=== PATIENT | male | born 1945 | race Caucasian/White ===

== ENCOUNTER 2018-04-13 03:52 | Emergency (ER) | payer MEDICARE, SELFPAY ==
[2018-04-13 04:00] VITALS: BP 147/91; PULSE 88; RESP 16; TEMP 37.1; O2SAT 96; BMI 29.4
--- NOTE | 2018-04-13 04:04 | ED_ITS ---
HPI - Abdominal Pain General Chief Complaint: Abdominal Pain Stated Complaint: low back pain stomach pain x30 mins Time Seen by Provider: 04/13/18 03:59 Source: patient Mode of arrival: ambulatory Limitations: no limitations History of Present Illness HPI narrative: Patient is a 72-year-old male who came into the emergency department for crampy abdominal pain and also back pain. He states that it woke him from his sleep. No nausea or vomiting. He did urinate which did not seem to change the symptoms at all. He has not had a bowel movement. Has not tried anything for the symptoms prior to arrival. Related Data Home Medications Medication Instructions Recorded Confirmed omega 0-zvt-nfy-fish oil [Fish Oil] 1,000 mg PO #0 12/26/16 10/11/17 antiarthritic combination no.2 900 mg PO tab 10/11/17 10/11/17 mg tablet cholecalciferol (vitamin D3) 2,000 2,000 unit PO DAILY 10/11/17 10/11/17 unit capsule arvpgaeqxlqe-Mn-zzdm-minerals 18 tab PO tab 10/11/17 10/11/17 mg-0.4 mg tablet Previous Rx's Medication Instructions Recorded alprazolam [Xanax] 1 mg PO BIDP PRN #20 tab 01/15/17 lisinopril 20 mg PO QDAY #90 tab 01/15/17 albuterol sulfate [Ventolin HFA] 2 puff INH QID #1 ea 01/24/17 Allergies Allergy/AdvReac Type Severity Reaction Status Date / Time cedarwood [CEDARWOOD] Allergy Intermediate URI sx Verified 04/13/18 04:23 codeine [CODEINE] Allergy Mild PASSING OUT Verified 04/13/18 04:23 lidocaine [LIDOCAINE] Allergy Mild Verified 04/13/18 04:23 Review of Systems Constitutional Denies fever(s) and Denies headache(s) ENT Ears, Nose, Mouth, and Throat: Denies headache(s) Cardiovascular Denies chest pain and Denies dyspnea Respiratory Denies dyspnea Gastrointestinal Gastrointestinal: Reports abdominal pain, Denies change in stool character, Denies constipation, Reports cramping, Denies nausea and Denies vomiting Genitourinary Denies dysuria and Denies flank pain Musculoskeletal Reports back pain, Denies myalgias and Denies arthralgias Integumentary/Breasts Denies rash Neurologic Denies behavioral changes and Denies headache(s) Psychiatric Denies behavioral changes Hematologic/Lymphatic Comments: Not on blood thinners PFSH Medical History Hypertension (Acute) Social History Smoking Status: Former smoker alcohol intake: current Social History Smoking Status: Former smoker alcohol intake: current Exam Initial Vital Signs Initial Vital Signs: Vital Signs Temperature 98.8 F 04/13/18 04:00 Pulse Rate 88 04/13/18 04:00 Respiratory Rate 16 04/13/18 04:00 Blood Pressure 147/91 H 04/13/18 04:00 Pulse Oximetry 96 04/13/18 04:00 Const General: cooperative, healthy appearing, comfortable, well developed, well groomed and No acute distress Orientation: alert, awake and oriented x3 HENMT Head: normal to inspection and normocephalic Resp Effort & Inspection: normal respiratory effort Auscultation: clear to auscultation bilaterally Cardio Rate: regular rate Rhythm: regular rhythm Pulses: radial pulses present GI Inspection: non-distended Palpation: soft, No firm and No tender Back/Spine/Pelvis Back: No CVA tenderness Skin Lesions: no lesions Rashes: no rashes Neuro General: alert, awake and oriented x3 Cognition: normal cognition Speech: speech normal Extrem General: normal to inspection and capillary refill normal Psych Appearance: grossly normal and well kempt Course Orders Ordered: ED Orders 04/13/18 04:09 CT abdomen pelvis w con Stat 04/13/18 04:15 Complete Blood Count AUTO DIFF Stat Comprehensive Metabolic Panel Stat Lipase Stat 04/13/18 04:26 Lactate (Lactic Acid) Stat Discontinued Medications Sodium Chloride (Normal Saline 0.9%) 1,000 mls @ 1,000 mls/hr IV BOLUS ONE Stop: 04/13/18 05:07 Last Infusion: 04/13/18 05:30 Dose: 0 mls/hr Admin: 04/13/18 04:23 Dose: 1,000 mls/hr Morphine Sulfate (Morphine) 2 mg IV NOW ONE Stop: 04/13/18 05:21 Last Admin: 04/13/18 05:25 Dose: 2 mg Vital Signs - 8 hr 04/13/18 04:00 04/13/18 05:04 Temperature 98.8 F Pulse Rate 88 78 Respiratory Rate 16 18 Blood Pressure 147/91 H Blood Pressure [Right Arm] 139/75 Pulse Oximetry 96 98 MDM - Abdominal Pain Lab Data Attestation: I reviewed the patient's lab results. Result diagrams: 04/13/18 04:15 04/13/18 04:15 Lab Results 04/13/18 04/13/18 04/13/18 Range/Units 04:15 04:15 04:26 WBC 8.1 (4.5-11.0) X10^3/uL RBC 4.94 (4.5-5.9) X10^6/uL Hgb 14.9 (13.5-17.5) g/dL Hct 44.0 (41-53) % MCV 89.1 (80-100) fL MCH 30.2 (26-34) PG MCHC 33.9 (30-36) % RDW 13.2 (11.6-14.8) % Plt Count 280 (150-400) X10^3/uL Neut % (Auto) 63.0 (50-75) % Lymph % (Auto) 22.6 L (25-40) % Dundy % (Auto) 10.4 (3-14) % Eos % (Auto) 3.4 (2-4) % Baso % (Auto) 0.6 (0-2) % Neut # (Auto) 5100 (0600-7885) /uL Lymph # (Auto) 1800 (3882-8303) /uL Dundy # (Auto) 800 (0-900) /uL Eos # (Auto) 300 (0-450) /uL Baso # (Auto) 0 (0-100) /uL Sodium 138 (137-145) mmol/L Potassium 4.1 (3.4-5.1) mmol/L Chloride 101 (98-107) mmol/L Carbon Dioxide 28 (22-32) mmol/L BUN 15 (9-20) mg/dL Creatinine 0.90 (0.66-1.25) mg/dL Estimated GFR > 60.0 (>60) mL/min BUN/Creatinine Ratio 16.7 (6-22) Glucose 99 (80-110) mg/dL Lactate 1.4 (0.7-2.1) mmol/L Calcium 9.6 (8.4-10.2) mg/dL Total Bilirubin 0.3 (0.2-1.3) mg/dL AST 23 (17-59) IU/L ALT 29 (21-72) IU/L Alkaline Phosphatase 47 (38-126) U/L Total Protein 7.6 (6.3-8.2) g/dL Albumin 4.4 (3.5-5.0) g/dL Globulin 3.2 (1.7-4.1) g/dL Albumin/Globulin Ratio 1.4 (1.0-2.8) Lipase 77 (23-300) U/L Imaging Data CT scan - abdomen: Radiologist's impression: Moderate stool in the colon with sigmoid diverticulosis. No acute abnormality. [facility] Narrative Medical decision making narrative: Patient urinated before he came in and had no dysuria. CT scan shows no signs of acute pathology. No aortic issues. Labs are unremarkable. I do suspect that this is GI in nature. We did discuss he could potentially have diarrhea over the next couple hours. We did discuss return precautions. No indication for emergent surgical consultation. Patient was given return precautions. He expressed understanding and agreement with plan. Discharge Plan Departure Patient Disposition: Home Clinical Impression: Abdominal cramping Instructions: Acute Abdominal Pain Activity Restrictions/Additional Instructions: Your CT scan and labs today were unremarkable. Do not be surprised if you developed some diarrhea over the next couple hours. Contact your primary care doctor for follow-up. Return to the emergency department for any new or worsening symptoms. Continue all your medications as directed. Prescriptions: No Action onppctbduebe-Ak-oisi-minerals [Maximum Daily Multivitamin] 18-0.4 mg tablet PO RF: 0 cholecalciferol (vitamin D3) 2,000 unit capsule 2,000 unit PO DAILY RF: 0 antiarthritic combination no.2 [glucosamine-chondroitin] 900 mg tablet PO RF: 0 omega 9-cqg-zjc-fish oil [Fish Oil] 1,000 MG capsule 1,000 mg PO Qty: 0 RF: 0 alprazolam [Xanax] 1 MG tablet 1 mg PO BIDP PRNQty: 20 RF: 0 lisinopril 20 MG tablet 20 mg PO QDAY Qty: 90 RF: 3 albuterol sulfate [Ventolin HFA] 90 MCG/PUFF HFA aerosol inhaler 2 puff INH QID Qty: 1 RF: 1
--- NOTE | 2018-04-13 04:09 | DI.CT.S_ITS ---
PROCEDURE: CT ABDOMEN PELVIS W CON INDICATIONS: Bilateral lower abdominal pain TECHNIQUE: After the administration of intravenous contrast, 5 mm thick sections acquired from the diaphragm to the symphysis. 5 mm coronal and sagittal reformats were acquired. For radiation dose reduction, the following was used: automated exposure control, adjustment of mA and/or kV according to patient size. COMPARISON: None. FINDINGS: Image quality: Excellent. ABDOMEN: Lung bases: Lung bases are clear. Heart size is normal. There is calcification of the mitral annulus. Solid organs: Liver is normal in size and enhancement. Gallbladder is mildly contracted. Biliary system is non dilated. Pancreas enhances normally. Spleen is normal in size and enhancement. No adrenal nodules. Kidneys demonstrate normal size and enhancement, without hydronephrosis. A low-density cystic lesion is present within the lower pole of the left kidney which likely represents a simple renal cyst but is incompletely characterized. Peritoneum and bowel: Bowel loops demonstrate normal wall thickness and caliber. The appendix is thin walled. There are scattered sigmoid diverticula. No evidence for diverticulitis. No free fluid or air. Nodes and vessels: No retroperitoneal or mesenteric adenopathy by size criteria. Aorta and inferior vena cava are normal in size. There are scattered atheromatous calcifications throughout the aorta and iliac arteries bilaterally. Miscellaneous: No ventral hernias. PELVIS: Genitourinary: Bladder wall thickness is normal. Miscellaneous: No inguinal adenopathy. There is a small fat containing left inguinal hernia. Bones: No suspicious bony lesions. No vertebral body compression fractures. IMPRESSION: 1. No acute intra-abdominal findings. Normal appendix. 2. Diverticulosis. No acute diverticulitis. These findings are concordant with the overnight interpretation. Dictated by: Keisha Pollock M.D. on 04/13/2018 at 8:56 Approved by: Keisha Pollock M.D. on 04/13/2018 at 8:59
[2018-04-13] MEDS: SODIUM CHLORIDE 0.9% 1,000 ML 1000 ML IV (04:23)
[2018-04-13 04:27] LABS: Add Manual Diff / Slide Review NO; Basophils Absolute Auto 0 /uL (0-100); Basophils Percent Auto 0.6 % (0-2); Eosinophils Absolute Auto 300 /uL (0-450); Eosinophils Percent Auto 3.4 % (2-4); Hemoglobin 14.9 g/dL (13.5-17.5); Lymphocytes Absolute Auto 1800 /uL (1100-4500); Lymphocytes Percent Auto 22.6 % (25-40); Mean Corpuscular HGB Conc 33.9 % (30-36); Mean Corpuscular Hemoglobin 30.2 PG (26-34); Mean Corpuscular Volume 89.1 fL (80-100); Monocytes Absolute Auto 800 /uL (0-900); Monocytes Percent Auto 10.4 % (3-14); Neutrophils Absolute Auto 5100 /uL (1500-7000); Platelet Count 280 X10^3/uL (150-400); Red Blood Cell Count 4.94 X10^6/uL (4.5-5.9); Red Cell Distribution Width 13.2 % (11.6-14.8); White Blood Cell Count 8.1 X10^3/uL (4.5-11.0)
[2018-04-13 04:34] LABS: Alanine Aminotransferase 29 IU/L (21-72); Albumin 4.4 g/dL (3.5-5.0); Albumin Globulin Ratio 1.4 (1.0-2.8); Alkaline Phosphatase 47 U/L (38-126); Aspartate Aminotransferase 23 IU/L (17-59); BUN Creatinine Ratio 16.7 (6-22); Bilirubin Total 0.3 mg/dL (0.2-1.3); Blood Urea Nitrogen 15 mg/dL (9-20); Calcium 9.6 mg/dL (8.4-10.2); Carbon Dioxide 28 mmol/L (22-32); Chloride 101 mmol/L (98-107); Estimated Glomerular Filt Rate > 60.0 mL/min (>60); Globulin 3.2 g/dL (1.7-4.1); Glucose 99 mg/dL (80-110); HEMOLYSIS 31 (0-50); Lipase 77 U/L (23-300); Potassium 4.1 mmol/L (3.4-5.1); Sodium 138 mmol/L (137-145); Total Protein 7.6 g/dL (6.3-8.2)
[2018-04-13 04:44] LABS: Lactate (Lactic Acid) 1.4 mmol/L (0.7-2.1)
[2018-04-13 05:04] VITALS: BP 139/75; PULSE 78; RESP 18; O2SAT 98
[2018-04-13] MEDS: MORPHINE 4 MG/ML INJ 2 MG IV (05:25)
[2018-04-13 06:00] VITALS: BP 140/85; PULSE 74; RESP 16; O2SAT 99
[2018-04-13 06:30] VITALS: BP 133/82; PULSE 70; RESP 16; O2SAT 99
[2018-04-13] MEDS: MORPHINE 2 MG/ML INJ IV (06:53)
== END 2018-04-13 07:08 | disposition home or self-care (01) ==
PROVIDERS: Emergency Provider Emergency Medicine; Family Provider Family Medicine
DX: R10.9 Unspecified abdominal pain (principal); M54.5 Low back pain
CPT/HCPCS: 36415; 36591; 74177; 80053; 83605; 83690; 85025; 96361; 96374; 96376; 99283; 99285; J2270; Q9967

== ENCOUNTER → 2018-06-10 07:38 | Outpatient (CLI) | payer MEDICARE, SELFPAY ==
[2018-06-10 08:56] LABS: Cholesterol 170 mg/dL (140-199); HDL Cholesterol 35 mg/dL (40-60); LDL Cholesterol Calculated 110 mg/dL (<100); Triglycerides 126 mg/dL (35-150)
[2018-06-10 09:27] LABS: Prostate Specific Antigen Scrn 0.484 ng/mL (0.1-4.0)
== END ==
PROVIDERS: PCP Internal Medicine; Visit Provider Internal Medicine
DX: I10 Essential (primary) hypertension (principal); Z12.5 Encounter for screening for malignant neoplasm of prostate; Z13.1 Encounter for screening for diabetes mellitus; Z13.6 Encounter for screening for cardiovascular disorders
CPT/HCPCS: 36415; 80061; G0103

== ENCOUNTER → 2018-06-14 10:35 | Outpatient (CLI) | payer MEDICARE, SELFPAY ==
[2018-06-17 21:06] LABS: Fecal Immunochemical Test NOT DETECTED (NOT DETECTED)
== END ==
PROVIDERS: PCP Internal Medicine; Visit Provider Internal Medicine
DX: Z12.11 Encounter for screening for malignant neoplasm of colon (principal)
CPT/HCPCS: 82274

== ENCOUNTER → 2018-07-25 10:41 | Outpatient (CLI) | payer MEDICARE, SELFPAY ==
--- NOTE | 2018-07-25 10:43 | DI.RAD.S_ITS ---
PROCEDURE: XR KNEE LT 3V INDICATIONS: left knee swelling, pain TECHNIQUE: Left views of the knee were acquired. COMPARISON: None. FINDINGS: Bones: No fractures or dislocations. No suspicious bony lesions. Soft tissues: No joint effusion. No suspicious soft tissue calcifications. IMPRESSION: Normal for age, source of current knee pain symptoms is not seen. Dictated by: Travon Cao M.D. on 07/25/2018 at 11:41 Approved by: Travon Cao M.D. on 07/25/2018 at 11:41
== END ==
PROVIDERS: PCP Internal Medicine; Visit Provider Nurse Practitioner Family
DX: M25.562 Pain in left knee (principal)
CPT/HCPCS: 73562

== ENCOUNTER → 2018-08-22 18:26 | Outpatient (CLI) | payer MEDICARE, SELFPAY ==
--- NOTE | 2018-08-22 | DI.MRI.S_ITS ---
PROCEDURE: MR KNEE LT WO CON INDICATIONS: INTERNAL DERANGMENT OF LEFT KNEE TECHNIQUE: Noncontrast sagittal PD fast spin echo and T2 fast spin echo with fat saturation, sagittal 3-D FLASH with fat saturation; coronal T1 spin echo and PD fast spin echo with fat saturation, and axial PD fast spin echo with fat saturation through the knee. COMPARISON: None. FINDINGS: Image quality: Excellent. Menisci: There is peripheral displacement of medial meniscus bowing medial collateral ligament. No definite focal medial meniscal tear. Lateral meniscus is normal in size and signal. The meniscal root ligaments appear intact. Cruciate ligaments: The anterior and posterior cruciate ligaments appear intact. Medial structures: Moderate grade sprain/partial thickness tear involving medial collateral ligament is seen. The posterior oblique ligament, semimembranosus tendon insertions, oblique popliteal ligament, and meniscocapsular junction appear intact. Visualized portions of the pes anserinus tendons appear normal. No abnormal bursal fluid. Lateral structures: The lateral collateral ligament, long and short heads of the biceps femoris tendon appear intact. The popliteus tendon appears normal; the popliteofibular ligament appears intact. The posterosuperior and anteroinferior popliteomeniscal fascicles appear intact. The arcuate and fabellofibular ligaments appear intact, on either side of the lateral inferior geniculate artery. Iliotibial band appears normal. Anterior structures: The quadriceps and patellar tendons appear intact. Patellar alignment is normal. No femoral trochlear dysplasia or ventral trochlear prominence. No edema in the infrapatellar fat pad. 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 Marrow edema involving the adjacent weightbearing portion of medial tibial plateau is seen. No discrete fracture line is noted. 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 Joint space: There is moderate amount of joint fluid, no gross loose body. No Bernal's cyst. Normal appearing synovial plicae are incidentally noted. IMPRESSION: 1. 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 Mild osteoarthritic changes in lateral femoral tibial compartment and patellofemoral compartment is seen. 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 Moderate joint effusion, no gross loose body. 2. Tissu ligaments are intact. No evidence of focal meniscal tear. 3. Moderate grade sprain/partial thickness involving medial collateral ligament. Dictated by: Manuel Mahmood M.D. on 08/23/2018 at 11:18 Approved by: Manuel Mahmood M.D. on 08/23/2018 at 11:25
== END ==
PROVIDERS: PCP Internal Medicine; Visit Provider Orthopaedic Surgery Foot and Ankle Surgery
DX: S83.412A Sprain of medial collateral ligament of left knee, initial encounter (principal); M22.42 Chondromalacia patellae, left knee; M25.462 Effusion, left knee
CPT/HCPCS: 73721

== ENCOUNTER → 2018-09-20 09:05 | Outpatient (CLI) | payer MEDICARE, SELFPAY ==
[2018-09-20 10:39] LABS: Hematocrit 40.9 % (41-53); Hemoglobin 13.9 g/dL (13.5-17.5); Mean Corpuscular Hemoglobin 30.9 PG (26-34); Platelet Count 246 X10^3/uL (150-400); Red Cell Distribution Width 13.2 % (11.6-14.8); White Blood Cell Count 6.2 X10^3/uL (4.5-11.0)
[2018-09-20 10:57] LABS: BUN Creatinine Ratio 18.6 (6-22); Blood Urea Nitrogen 13 mg/dL (9-20); Calcium 9.6 mg/dL (8.4-10.2); Carbon Dioxide 26 mmol/L (22-32); Chloride 104 mmol/L (98-107); Estimated Glomerular Filt Rate > 60.0 mL/min (>60); Glucose 91 mg/dL (80-110); HEMOLYSIS < 15 (0-50); Potassium 4.4 mmol/L (3.4-5.1); Sodium 139 mmol/L (137-145)
== END ==
PROVIDERS: PCP Internal Medicine; Visit Provider Internal Medicine
DX: M17.12 Unilateral primary osteoarthritis, left knee (principal); Z01.812 Encounter for preprocedural laboratory examination
CPT/HCPCS: 36415; 80048; 85027; 87797

== ENCOUNTER 2018-10-18 16:06 | Emergency (ER) | payer MEDICARE, SELFPAY ==
[2018-10-18 16:15] VITALS: BP 111/68; PULSE 88; RESP 20; TEMP 37.9; O2SAT 97; BMI 28.3
--- NOTE | 2018-10-18 16:43 | DI.RAD.S_ITS ---
PROCEDURE: XR KNEE LT 3V INDICATIONS: post op day 1. pt fell onto his left knee , pain and bleeding TECHNIQUE: 3 views of the knee were acquired. COMPARISON: [facility], [facility], XR KNEE LT 3V, 07/25/2018, 10:43. FINDINGS: Bones: There are postoperative changes from left knee hemiarthroplasty involving the medial femorotibial compartment. Surgical hardware appears intact and normally aligned. No evidence for hardware complication. Multiple skin angelika are noted. No acute fractures or dislocations. No suspicious bony lesions. Soft tissues: Expected postoperative soft tissue changes from recent surgical procedure. IMPRESSION: Status post left knee hemiarthroplasty without evidence for hardware complication or acute fracture. Expected overlying soft tissue changes from recent surgical procedure. Dictated by: Srinivas Matias M.D. on 10/18/2018 at 17:03 Approved by: Srinivas Matias M.D. on 10/18/2018 at 17:05
[2018-10-18] MEDS: ONDANSETRON 4 MG ODT SL (19:51)
--- NOTE | 2018-10-18 20:07 | ED_ITS ---
HPI - Extremity Injury (Lower) <Chantel WilkinsDEB - Last Filed: 10/18/18 21:49> General Chief Complaint: Extremity Injury, Lower Stated Complaint: knee replacement surgery, GLF, wound bleeding Time Seen by Provider: 10/18/18 19:03 Source: patient Mode of arrival: ambulatory Limitations: no limitations History of Present Illness HPI Narrative: 72-year-old male who is status post 1 day left partial knee replacement by Dr. Le at [facility] in [place], states that he was getting home today around 3:00 p.m. when he tripped on the last step at his house and fell on to his buttocks and his left knee. He states that he noticed more bleeding and that it was coming through the bandage. He denies deformity, denies increased pain, denies syncope, and denies hitting his head. He is able to move his extremity, limited flexion and extension as expected after surgery. Patient denies any fevers, chills, vomiting, nausea, dizziness, change in bowel or bladder problems, numbness, tingling, or other injuries. Related Data Home Medications Medication Instructions Recorded Confirmed cholecalciferol (vitamin D3) 2,000 2,000 unit PO DAILY 10/11/17 09/20/18 unit capsule yoptcjkdxpjj-Cf-ouez-minerals 18 tab PO tab 10/11/17 09/20/18 mg-0.4 mg tablet antiarthritic combination no.2 900 mg PO tab 05/30/18 09/20/18 mg tablet aspirin 81 mg tablet,delayed 81 mg PO DAILY 05/30/18 09/20/18 release omega 2-ubx-ybs-fish oil 1,000 mg See Rx Instructions PO DAILY #0 cap 05/30/18 09/20/18 (120 mg-180 mg) capsule acetaminophen 500 mg tablet 500 mg PO QID PRN 07/25/18 09/20/18 lisinopril 20 mg PO DAILY 10/18/18 10/18/18 meloxicam 7.5 mg PO DAILY 10/18/18 10/18/18 meloxicam 15 mg PO DAILY 10/18/18 10/18/18 Previous Rx's Medication Instructions Recorded alprazolam 1 mg tablet 1 mg PO BID PRN #5 tab 05/30/18 simvastatin 20 mg tablet 20 mg PO QPM #90 tab 07/12/18 Allergies Allergy/AdvReac Type Severity Reaction Status Date / Time cedarwood [CEDARWOOD] Allergy Intermediate URI sx Verified 10/18/18 16:36 codeine [CODEINE] Allergy Mild PASSING OUT Verified 10/18/18 16:36 lidocaine [LIDOCAINE] Allergy Mild Verified 10/18/18 16:36 Review of Systems <DEB Reyna - Last Filed: 10/18/18 21:49> Review of Systems Narrative: REVIEW OF SYSTEMS: GENERAL: Denies fever or chills. HENT: No head trauma. EYES: No double vision or vision loss. CARDIOVASCULAR: No chest pain or syncope. RESPIRATORY: No shortness of breath or cough. GASTROINTESTINAL: No nausea, vomiting, diarrhea, or constipation. GENITOURINARY: No flank pain or dysuria. MUSCULOSKELETAL: Complains of left knee pain, see HPI. INTEGUMENTARY: No rash, lesions, or pruritus. NEURO: No numbness, tingling. PSYCH: No behavior or mood changes. PFSH <DEB Reyna - Last Filed: 10/18/18 21:49> Medical History Abdominal cramps (Resolved ~04/13/18) Benign essential hypertension (Chronic) Cardiac murmur (Chronic) Hearing loss (Chronic) Hyperlipidemia (Chronic) Hypertension (Chronic) Osteoarthritis of left knee (Chronic) Spinal stenosis (Chronic ~2013) Vision disorder (Chronic) Surgical History Broken wrist (Resolved ~1964) Family History Father Mental health problem Mother Stroke Sister Schizophrenia Grandfather Heart failure Grandmother Heart failure Grandfather Alcoholic Grandmother No problems noted. Social History Smoking Status: Former smoker alcohol intake: current Family History Father Mental health problem Mother Stroke Sister Schizophrenia Grandfather Heart failure Grandmother Heart failure Grandfather Alcoholic Grandmother No problems noted. Social History Smoking Status: Former smoker alcohol intake: current Exam <Chantel CorriganDEB castano - Last Filed: 10/18/18 21:49> Initial Vital Signs Initial Vital Signs: Vital Signs Temperature 100.3 F H 10/18/18 16:15 Pulse Rate 88 10/18/18 16:15 Respiratory Rate 20 10/18/18 16:15 Blood Pressure 111/68 10/18/18 16:15 Pulse Oximetry 97 10/18/18 16:15 PHYSICAL EXAMINATION: GENERAL: Well groomed, alert, and cooperative. Answers questions promptly and appropriately. HENT: Normocephalic, atraumatic. EYES: Symmetrical, sclera white, no periorbital swelling. CARDIOVASCULAR: S1 and S2 sounds normal. Regular rate and rhythm, no murmurs, clicks, or bruits. No pedal edema. RESPIRATORY: Normal respiratory rate, trachea midline, airway patent. No stridor, nasal flaring or accessory muscle use. Lungs are clear in all owens. MUSCULOSKELETAL: Surgical incision site to left knee intact, it appears that possibly 1 staple was dislodged towards the end of the incision, no skin separation, no bleeding, no erythema or exudate surrounding the incision. For patient's dressing was removed, it was saturated with blood. Small 4cmx 6xm hematoma lateral to the knee cap without laceration. Swelling to knee as expected postoperatively. Patient able to extend and bend knee slightly, limited range of motion due to pain and swelling. Equal tone and mass bilaterally. No other injury to legs or buttocks PI EXTREMITIES: CMS intact. SKIN: Warm, dry, soft, appropriate color for ethnicity. No lesions, rashes, or wounds. NEURO: Alert and Oriented X 3. No sensory deficits. PSYCH: Appropriate affect and mood. <Hilda Bender DO - Last Filed: 10/22/18 05:42> Initial Vital Signs Initial Vital Signs: Vital Signs Temperature 100.3 F H 10/18/18 16:15 Pulse Rate 88 10/18/18 16:15 Respiratory Rate 20 10/18/18 16:15 Blood Pressure 111/68 10/18/18 16:15 Pulse Oximetry 97 10/18/18 16:15 Course <Chantel CorriganDEB castano - Last Filed: 10/18/18 21:49> Course Course Narrative: Patient's wound was redressed. Patient stated he had called his surgeon today and alerted them of the fall, he was instructed to update them in the morning as well. Orders Ordered: Discontinued Medications Ondansetron HCl (Zofran Odt) 4 mg SL NOW ONE Stop: 10/18/18 19:25 Last Admin: 10/18/18 19:51 Dose: 4 mg Documented by: LETTYOTECaleb Vital Signs Vital signs: Vital Signs - 8 hr 10/18/18 16:15 10/18/18 20:09 Temperature 100.3 F H Pulse Rate 88 99 H Respiratory Rate 20 Blood Pressure 111/68 134/66 Pulse Oximetry 97 98 <Hilda Bender DO - Last Filed: 10/22/18 05:42> Orders Ordered: Discontinued Medications Ondansetron HCl (Zofran Odt) 4 mg SL NOW ONE Stop: 10/18/18 19:25 Last Admin: 10/18/18 19:51 Dose: 4 mg Documented by: KBROTEM Vital Signs Vital signs: Vital Signs - 8 hr 10/18/18 16:15 10/18/18 20:09 Temperature 100.3 F H Pulse Rate 88 99 H Respiratory Rate 20 Blood Pressure 111/68 134/66 Pulse Oximetry 97 98 MDM - Extremity Injury (Lower) <DEB Reyna - Last Filed: 10/18/18 21:49> Medical Records Attestation: I reviewed the patient's medical records. Lab Data Attestation: I reviewed the patient's lab results. Imaging Data Knee XR: Radiologist's impression: [address] [address] XRay Report Signed Patient: Blayne Nieves RMR#: [id number] : 6Acct:[id number] Age/Sex: 72 / MDate of Service: 10/18/18 Loc: ED Accession Number: [id number] Procedure: XR knee LT 3V Ordering Provider: Hilda Bender D.O. PROCEDURE: XR KNEE LT 3V INDICATIONS: post op day 1. pt fell onto his left knee , pain and bleeding TECHNIQUE: 3 views of the knee were acquired. COMPARISON: [facility], [place], XR KNEE LT 3V, 07/25/2018, 10:43. FINDINGS: Bones: There are postoperative changes from left knee hemiarthroplasty involving the medial femorotibial compartment. Surgical hardware appears intact and normally aligned. No evidence for hardware complication. Multiple skin angelika are noted. No acute fractures or dislocations. No suspicious bony lesions. Soft tissues: Expected postoperative soft tissue changes from recent surgical procedure. IMPRESSION: Status post left knee hemiarthroplasty without evidence for hardware complication or acute fracture. Expected overlying soft tissue changes from recent surgical procedure. Dictated by: Srinivas Matias M.D. on 10/18/2018 at 17:03 Approved by: Srinivas Matias M.D. on 10/18/2018 at 17:05 [facility] Narrative Medical decision making narrative: Simple trauma to left knee without significant complication as noted on x-ray. I believe 1 of the angelika was dislodged however bleeding is controlled and the hematoma is small. Less suspicion for infection as no erythema to his left leg, no excudate from wound, no malaise, or no other concerning symptoms. It is possible that his temperature is slightly elevated as he is barely 24 hours postop. Patient was instructed to monitor his temperature closely and return if any worsening symptoms. Strict return precautions given and follow-up instructions discussed. Discharge Plan Departure Patient Disposition: Home Clinical Impression: Status post left knee replacement Contusion of knee Qualifiers: Encounter type: initial encounter Laterality: left Qualified Code(s): S80.02XA - Contusion of left knee, initial encounter Discharge Date/Time: 10/18/18 20:09 Activity Restrictions/Additional Instructions: Thank you for entrusting me with your care today. As discussed, your x-rays were negative for any fractures or displacement of the hardware that was placed in your knee. You may experience more bruising over the next few days, please leave the bandage in place until follow-up. Monitor for signs of infection such as pussy discharge, fevers, redness, or malaise, if this occurs please return emergency department immediately. Additionally return emergency department if you developed chest pain, shortness of breath, or other concerning symptoms. Prescriptions: No Action cqdzyreerdry-In-kgnd-minerals [Maximum Daily Multivitamin] 18-0.4 mg tablet PO RF: 0 cholecalciferol (vitamin D3) 2,000 unit capsule 2,000 unit PO DAILY RF: 0 glucosamine-chondroitin 900 mg tablet PO RF: 0 omega 8-ggu-hhc-fish oil [Fish Oil] 1,000 mg (120 mg-180 mg) capsule See Rx Instructions PO DAILY Qty: 0 RF: 0 simvastatin 20 mg tablet 20 mg PO QPM Qty: 90 RF: 3 aspirin 81 mg tablet,delayed release (DR/EC) 81 mg PO DAILY RF: 0 alprazolam 1 mg tablet 1 mg PO BID PRN (Reason: anxiety) Qty: 5 RF: 0 acetaminophen [Tylenol Extra Strength] 500 mg tablet 500 mg PO QID PRNRF: 0 meloxicam 15 mg tablet 15 mg PO DAILY RF: 0 meloxicam 7.5 mg tablet 7.5 mg PO DAILY RF: 0 lisinopril 20 mg tablet 20 mg PO DAILY RF: 0 Referrals: Trell Matos MD [Primary Care Provider] -
[2018-10-18 20:09] VITALS: BP 134/66; PULSE 99; O2SAT 98
== END 2018-10-18 20:09 | disposition home or self-care (01) ==
PROVIDERS: Emergency Provider Nurse Practitioner; PCP Internal Medicine
DX: Z98.890 Other specified postprocedural states (principal); Z96.652 Presence of left artificial knee joint; S80.02XA Contusion of left knee, initial encounter
CPT/HCPCS: 73562; 99282; 99283

== ENCOUNTER → 2020-04-26 14:17 | Outpatient (CLI) | payer MEDICARE, SELFPAY ==
--- NOTE | 2020-04-26 14:19 | DI.RAD.S_ITS ---
PROCEDURE: XR SHOULDER RT MIN 2V INDICATIONS: R shoulder pain, dec rom, r/o bony abnormality TECHNIQUE: 3 views of the shoulder were acquired. COMPARISON: None. FINDINGS: Bones: No fractures or dislocations. Moderate acromioclavicular joint and glenohumeral joint osteoarthritic changes are seen. No suspicious bony lesions. Visualized ribs appear intact. Soft tissues: No suspicious soft tissue calcifications. IMPRESSION: Moderate right shoulder joint osteoarthritis. No shoulder fracture or dislocation. Dictated by: Manuel Mahmood M.D. on 04/26/2020 at 13:54 Approved by: Manuel Mahmood M.D. on 04/26/2020 at 14:06
== END ==
PROVIDERS: PCP Internal Medicine; Referring Provider Physician Assistant; Visit Provider Physician Assistant
DX: M25.511 Pain in right shoulder (principal); M19.011 Primary osteoarthritis, right shoulder
CPT/HCPCS: 73030

== ENCOUNTER → 2020-12-15 10:30 | Outpatient (CLI) | payer MEDICARE, SELFPAY ==
[2020-12-15 12:06] LABS: Alanine Aminotransferase 22 IU/L (<50); Albumin 4.3 g/dL (3.5-5.0); Albumin Globulin Ratio 1.5 (1.0-2.8); Alkaline Phosphatase 49 U/L (38-126); Aspartate Aminotransferase 30 IU/L (17-59); BUN Creatinine Ratio 20.5 (6-22); Bilirubin Total 0.7 mg/dL (0.2-1.3); Blood Urea Nitrogen 16 mg/dL (9-20); Calcium 9.7 mg/dL (8.4-10.2); Carbon Dioxide 27 mmol/L (22-32); Chloride 104 mmol/L (98-107); Cholesterol 153 mg/dL (140-199); Estimated Glomerular Filt Rate > 60.0 mL/min (>60); Globulin 2.9 g/dL (1.7-4.1); Glucose 92 mg/dL (80-110); HDL Cholesterol 44 mg/dL (40-60); HEMOLYSIS < 15 (0-50); LDL Cholesterol Calculated 90 mg/dL (<100); Potassium 4.3 mmol/L (3.4-5.1); Sodium 138 mmol/L (137-145); Total Protein 7.2 g/dL (6.3-8.2); Triglycerides 93 mg/dL (35-150)
[2020-12-15 12:37] LABS: Prostate Specific Antigen Scrn 0.604 ng/mL (0.1-4.0)
== END ==
PROVIDERS: PCP Internal Medicine; Referring Provider Internal Medicine; Visit Provider Internal Medicine
DX: E78.5 Hyperlipidemia, unspecified (principal); Z12.5 Encounter for screening for malignant neoplasm of prostate; I10 Essential (primary) hypertension
CPT/HCPCS: 36415; 80053; 80061; G0103

== ENCOUNTER 2021-03-02 15:32 | Emergency (ER) | payer MEDICARE, SELFPAY ==
[2021-03-02 15:39] VITALS: BP 182/102; PULSE 89; RESP 22; TEMP 36.6; O2SAT 100
--- NOTE | 2021-03-02 15:42 | ED.BACK ---
HPI - Back Pain/Injury General Chief Complaint: Back Pain/Injury Stated Complaint: spinal stenosis, pain Time Seen by Provider: 03/02/21 15:38 History of Present Illness HPI Narrative: 75-year-old male former smoker with history of spinal stenosis presents with a chief complaint of gradually worsening right lower back pain with radiation down his right leg since an injury sustained at the end of last week. 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 He denies any numbness, tingling or weakness. He denies any loss of control of bowel or bladder. He has had no fever or chills and does not take blood thinners. His pain is worse when he moves and improves with rest. He is otherwise well and free of complaint. He had been to the walk-in clinic twice over the past few days and has had some Toradol as well as Flexeril with minimal relief. Related Data Home Medications Medication Instructions Recorded Confirmed cholecalciferol (vitamin D3) 50 2,000 unit PO DAILY 10/11/17 03/01/21 mcg (2,000 unit) capsule caxggakkgzco-Ek-svei-minerals 18 tab PO tab 10/11/17 03/01/21 mg-0.4 mg tablet (Maximum Daily Multivitamin) antiarthritic combination no.2 900 mg PO tab 05/30/18 03/01/21 mg tablet (glucosamine-chondroitin) aspirin 81 mg tablet,delayed 81 mg PO DAILY 05/30/18 03/01/21 release omega 4-qdp-pdh-fish oil 1,000 mg See Rx Instructions PO DAILY #0 cap 05/30/18 03/01/21 (120 mg-180 mg) capsule (Fish Oil) acetaminophen 500 mg tablet 500 mg PO QID PRN 07/25/18 03/01/21 (Tylenol Extra Strength) Previous Rx's Medication Instructions Recorded fluticasone propionate 50 See Rx Instructions .ROUTE 08/05/19 mcg/actuation nasal .COMPLEX #16 gram spray,suspension simvastatin 20 mg tablet 20 mg PO QPM #90 tab 10/04/20 lisinopril 20 mg tablet 20 mg PO DAILY #90 tab 12/13/20 meloxicam 15 mg tablet 15 mg PO DAILY #90 tab 01/14/21 cyclobenzaprine 5 mg tablet 5 mg PO TID PRN #20 tab 02/28/21 gabapentin 300 mg capsule 300 mg PO BEDTIME #14 cap 03/02/21 hydrocodone 5 mg-acetaminophen 325 1 tab PO Q4-6H PRN #10 tab 03/02/21 mg tablet ketorolac 10 mg tablet 10 mg PO Q6H PRN #14 tab 03/02/21 prednisone 10 mg tablet See Rx Instructions .ROUTE 03/02/21 .COMPLEX #30 tab Allergies Allergy/AdvReac Type Severity Reaction Status Date / Time cedarwood [CEDARWOOD] Allergy Intermediate URI sx Verified 03/01/21 17:46 codeine [CODEINE] Allergy Mild PASSING OUT Verified 03/01/21 17:46 lidocaine [LIDOCAINE] Allergy Mild Verified 03/01/21 17:46 Review of Systems Review of Systems Narrative: GENERAL: Denies chills, fatigue, malaise, fever, sweats. HEENT: Denies sinus pain, ear pain, sore throat, difficulty swallowing, dizziness. RESPIRATORY: Denies dyspnea, cough, wheezing, hemoptysis, sputum. CARDIOVASCULAR: Denies chest pain, palpitations, orthopnea, edema, GASTROINTESTINAL: Denies nausea, vomiting, abdominal pain, diarrhea, constipation, melena. : Denies dysuria, frequency, incontinence, hematuria, urinary retention. MUSCULOSKELETAL: See HPI SKIN: Denies rash, skin lesions, or other NEUROLOGIC: Denies weakness, headache, numbness, change in speech, confusion, seizures, incoordination. PSYCHIATRIC: No concerning psychosocial issues. 12 point review of systems is negative except for those stated above Patient History Medical History Abdominal cramps (~04/13/18) Benign essential hypertension Cardiac murmur Hearing loss Hyperlipidemia Hypertension Osteoarthritis of left knee Spinal stenosis (~2013) Vision disorder Surgical History Broken wrist (~1965) Family History Father Mental health problem Mother Stroke Sister Schizophrenia Grandfather Heart failure Grandmother Heart failure Grandfather Alcoholic Grandmother No problems noted. Social History Smoking Status: Former smoker alcohol intake: current Smoking Status: Former smoker alcohol intake frequency: 0-2 drinks per day Substance Use Type: does not use Exam Narrative Exam Narrative: GENERAL: [75] year old patient appears stated age. Well-developed patient, in mild distress. Obviously uncomfortable, rubbing his right lower back HEAD: Atraumatic. Normocephalic. EYES: Pupils equal round and reactive. Extraocular motions intact. No scleral icterus. No injection or drainage. ENT: Nose without bleeding, purulent drainage. Throat without erythema, tonsillar hypertrophy or exudate. Airway patent. NECK: Trachea midline. Non tender CARDIOVASCULAR: Regular rate and rhythm without murmurs, gallops, or rubs. RESPIRATORY: Clear to auscultation. Breath sounds equal bilaterally. No wheezes, rales, or rhonchi. GASTROINTESTINAL: Abdomen soft, non-tender, nondistended. EXTREMITIES: No edema or joint tenderness. BACK: warp dyeing vat tender but free of any obvious external abnormalities. Patient exam notes decreased range of motion and muscle spasm, but no CVA tenderness, or vertebral point tenderness. There are no symptoms of cauda equina such as saddle anesthesia, and decreased reflexes, decreased sensation or strength. NEURO: AOx3. SKIN: No rash or erythema of visible areas Initial Vital Signs Initial Vital Signs: Vital Signs Temperature 97.9 F 03/02/21 15:39 Pulse Rate 89 03/02/21 15:39 Respiratory Rate 22 03/02/21 15:39 Blood Pressure 182/102 H 03/02/21 15:39 Pulse Oximetry 100 03/02/21 15:39 Course Orders Ordered: Discontinued Medications Gabapentin (Gabapentin 300 Mg Capsule) 300 mg PO NOW ONE Stop: 03/02/21 15:56 Last Admin: 03/02/21 16:14 Dose: 300 mg Documented by: JENNIFER Ketorolac Tromethamine (Ketorolac 30 Mg/Ml Vial) 30 mg IM NOW ONE Stop: 03/02/21 15:56 Last Admin: 03/02/21 16:13 Dose: 30 mg Documented by: JENNIFER Prednisone (Prednisone 20 Mg Tablet) 40 mg PO NOW ONE Stop: 03/02/21 15:56 Last Admin: 03/02/21 16:14 Dose: 40 mg Documented by: JENNIFER Vital Signs Vital signs: Vital Signs - 8 hr 03/02/21 15:39 Temperature 97.9 F Pulse Rate 89 Respiratory Rate 22 Blood Pressure 182/102 H Pulse Oximetry 100 MDM - Back Pain/Injury MDM Narrative Medical decision making narrative: Multiple etiologies of back pain considered including; Epidural abscess, cauda equina, mass occupying lesion, and other considered, however his history, physical exam and response to therapies are very reassuring and there is no obvious suggestion of an neuro surgical emergency. Patient feels much better after above-stated therapies and walks out feeling much better. He is given return precautions and encouraged to follow closely with his doctor. Discharge Plan Departure Patient Disposition: Home Clinical Impression: Low back pain with sciatica Instructions: DI for Back Pain With Sciatica Activity Restrictions/Additional Instructions: *You have been diagnosed with [lumbar radiculopathy. As we discussed, your history and physical exam are very reassuring and there is no suggestion of a neurosurgical emergency at this time. *What to do: *Please continue to take your regular medications as directed. [x ] New medication prescriptions sent to your pharmacy: [ [facility]] [ ] New medication written as a paper prescription [ ] No new medications given *Please follow up with your primary care provider in 2-3 days, call for an appointment. Let them know you were seen in the Emergency Department and that we ask that you be seen in follow up. We will electronically transmit a record of today's note if your PCP is in our system *If you do not have a primary care provider please contact the [facility] Resource line at [phone]. They will ask some questions about your medical history and help get you set up with a doctor in the community. *Return to Emergency Department if you should have any new, worsening or concerning symptoms, such as [fever greater than 101 F, shaking chills, worsening pain, persistent vomiting or other bothersome symptoms] Prescriptions: New hydrocodone-acetaminophen 5-325 mg tablet 1 tab PO Q4-6H PRN (Reason: pain) Qty: 10 0RF ketorolac 10 mg tablet 10 mg PO Q6H PRN (Reason: pain) Qty: 14 0RF gabapentin 300 mg capsule 300 mg PO BEDTIME Qty: 14 0RF prednisone 10 mg tablet See Rx Instructions .ROUTE .COMPLEX Qty: 30 0RF Rx Instructions: Day 1,2,3: 40mg PO Daily Day 4,5,6: 30mg PO Daily Day 7,8,9: 20mg PO Daily Day 10,11,12: 10mg PO Daily #30 No Action rfohksdmvwpa-Ki-kmsd-minerals [Maximum Daily Multivitamin] 18-0.4 mg tablet PO 0RF cholecalciferol (vitamin D3) 2,000 unit capsule 2,000 unit PO DAILY 0RF glucosamine-chondroitin 900 mg tablet PO 0RF Label Comments: 1500mg Glucosamine/1200mg of Chondroitin. 2 tabs in AM, 1 tab in PM cyclobenzaprine 5 mg tablet 5 mg PO TID PRN (Reason: muscle spasm) Qty: 20 0RF omega 8-ief-ukc-fish oil [Fish Oil] 1,000 mg (120 mg-180 mg) capsule See Rx Instructions PO DAILY Qty: 0 0RF Label Comments: 2 tabs in AM, 1 tab in PM PO DAILY; Rx Instructions: 2 tabs in AM, 1 tab in PM PO DAILY; fluticasone propionate 50 mcg/actuation spray,suspension See Rx Instructions .ROUTE .COMPLEX Qty: 16 5RF Dose Instruction: USE 2 SPRAYS IN EACH NOSTRIL AT BEDTIME Rx Instructions: USE 2 SPRAYS IN EACH NOSTRIL AT BEDTIME simvastatin 20 mg tablet 20 mg PO QPM Qty: 90 0RF Rx Instructions: PT OVERDUE FOR APPT W/PCP. PLEASE CALL TO SCHEDULE APPT. THANKS 10/04/20 lisinopril 20 mg tablet 20 mg PO DAILY Qty: 90 1RF Rx Instructions: KEEP 12/16/20 APPT W/SYLWIA. THANK YOU. 12/13/20 meloxicam 15 mg tablet 15 mg PO DAILY Qty: 90 2RF aspirin 81 mg tablet,delayed release (DR/EC) 81 mg PO DAILY 0RF acetaminophen [Tylenol Extra Strength] 500 mg tablet 500 mg PO QID [id number] Referrals: Trell Matos MD [Primary Care Provider] -
[2021-03-02] MEDS: KETOROLAC 30 MG/ML VIAL IM (16:13)
[2021-03-02] MEDS: GABAPENTIN 300 MG CAPSULE PO (16:14)
[2021-03-02] MEDS: predniSONE 20 MG TABLET 40 MG PO (16:14)
== END 2021-03-02 17:00 | disposition home or self-care (01) ==
PROVIDERS: Emergency Provider Emergency Medicine; PCP Internal Medicine
DX: M54.41 Lumbago with sciatica, right side (principal); Z87.891 Personal history of nicotine dependence
CPT/HCPCS: 96372; 99283; J1885

== ENCOUNTER 2021-03-05 12:27 | Emergency (ER) | payer MEDICARE, SELFPAY ==
[2021-03-05 12:30] VITALS: BP 182/94; PULSE 91; RESP 19; TEMP 36.8; O2SAT 99; BMI 27.6
--- NOTE | 2021-03-05 13:35 | ED.BACK ---
HPI - Back Pain/Injury General Chief Complaint: Back Pain/Injury Stated Complaint: Back Pain Time Seen by Provider: 03/05/21 12:41 Source: patient Mode of arrival: Ambulatory History of Present Illness HPI Narrative: Patient is a 75-year-old male. Has had issues with spinal stenosis in the past. Within the past couple days was working under house and when he got out from another house he twisted wrong and since has had pain in his lower back specifically on the right side. He was seen here in the emergency department a couple days ago. Was sent home with symptom control. Has been taking his medications. Ran out of the hydrocodone today. Has an appointment with his primary doctor already scheduled at the beginning of next week. He has no new symptoms compared earlier this week is shows he has run out of the pain medication and feels like he needs continued symptom control until he can get in disease primary doctor. Patient states the pain is mostly located in his back but occasionally he gets discomfort radiating down to the front of his right leg. Does not currently have any pain in his right leg Related Data Home Medications Medication Instructions Recorded Confirmed cholecalciferol (vitamin D3) 50 2,000 unit PO DAILY 10/11/17 03/01/21 mcg (2,000 unit) capsule josmosdknzep-Ol-etwa-minerals 18 tab PO tab 10/11/17 03/01/21 mg-0.4 mg tablet (Maximum Daily Multivitamin) antiarthritic combination no.2 900 mg PO tab 05/30/18 03/01/21 mg tablet (glucosamine-chondroitin) aspirin 81 mg tablet,delayed 81 mg PO DAILY 05/30/18 03/01/21 release omega 4-ctf-uxs-fish oil 1,000 mg See Rx Instructions PO DAILY #0 cap 05/30/18 03/01/21 (120 mg-180 mg) capsule (Fish Oil) acetaminophen 500 mg tablet 500 mg PO QID PRN 07/25/18 03/01/21 (Tylenol Extra Strength) Previous Rx's Medication Instructions Recorded fluticasone propionate 50 See Rx Instructions .ROUTE 08/05/19 mcg/actuation nasal .COMPLEX #16 gram spray,suspension simvastatin 20 mg tablet 20 mg PO QPM #90 tab 10/04/20 lisinopril 20 mg tablet 20 mg PO DAILY #90 tab 12/13/20 meloxicam 15 mg tablet 15 mg PO DAILY #90 tab 01/14/21 cyclobenzaprine 5 mg tablet 5 mg PO TID PRN #20 tab 02/28/21 gabapentin 300 mg capsule 300 mg PO BEDTIME #14 cap 03/02/21 hydrocodone 5 mg-acetaminophen 325 1 tab PO Q4-6H PRN #10 tab 03/02/21 mg tablet ketorolac 10 mg tablet 10 mg PO Q6H PRN #14 tab 03/02/21 prednisone 10 mg tablet See Rx Instructions .ROUTE 03/02/21 .COMPLEX #30 tab hydrocodone 5 mg-acetaminophen 325 1 tab PO Q6H PRN #20 tab 03/05/21 mg tablet Allergies Allergy/AdvReac Type Severity Reaction Status Date / Time cedarwood [CEDARWOOD] Allergy Intermediate URI sx Verified 03/05/21 12:34 codeine [CODEINE] Allergy Mild PASSING OUT Verified 03/05/21 12:34 lidocaine [LIDOCAINE] Allergy Mild Verified 03/05/21 12:34 Review of Systems Constitutional Constitutional: Denies fever(s) Genitourinary Genitourinary: Reports system reviewed and no additional complaints, except as documented and Reports as per HPI Musculoskeletal Musculoskeletal: Reports system reviewed and no additional complaints, except as documented and Reports as per HPI Integumentary/Breasts Skin/Breast: Reports system reviewed and no additional complaints, except as documented and Reports as per HPI Neurologic Neurologic: Reports system reviewed and no additional complaints, except as documented Hematologic/Lymphatic On Anticoagulants: No Patient History Medical History Abdominal cramps (~04/13/18) Benign essential hypertension Cardiac murmur Hearing loss Hyperlipidemia Hypertension Osteoarthritis of left knee Spinal stenosis (~2013) Vision disorder Surgical History Broken wrist (~1965) Family History Father Mental health problem Mother Stroke Sister Schizophrenia Grandfather Heart failure Grandmother Heart failure Grandfather Alcoholic Grandmother No problems noted. Social History Smoking Status: Former smoker alcohol intake: current Smoking Status: Former smoker alcohol intake frequency: 0-2 drinks per day Substance Use Type: does not use Exam Initial Vital Signs Initial Vital Signs: Vital Signs Temperature 98.2 F 03/05/21 12:30 Pulse Rate 91 H 03/05/21 12:30 Respiratory Rate 19 03/05/21 12:30 Blood Pressure 182/94 H 03/05/21 12:30 Pulse Oximetry 99 03/05/21 12:30 HENMT Head: normal to inspection and normocephalic Resp Effort & Inspection: normal respiratory effort Cardio Rate: regular rate Back/Spine/Pelvis Other: Some tenderness to palpation lower back right paraspinal region Skin General: no rashes or lesions noted Neuro General: patient alert, patient awake and moves all extremities Extrem General: normal to inspection and capillary refill normal Psych Appearance: grossly normal Course Vital Signs Vital signs: Vital Signs - 8 hr 03/05/21 12:30 03/05/21 13:49 Temperature 98.2 F 98.1 F Pulse Rate 91 H 78 Respiratory Rate 19 18 Blood Pressure 182/94 H 182/85 H Pulse Oximetry 99 98 MDM - Back Pain/Injury MDM Narrative Medical decision making narrative: Patient has no new symptoms compared to the last time he was here. I have low suspicion for fracture. Low suspicion for cauda equina. No new trauma. Have him continue taking the prednisone and also the ketorolac. He will start ibuprofen once these have finished. I will refill his hydrocodone for the next couple days. Is important that he follows up with his primary doctor to discuss further evaluation treatment. He was given return precautions. He expressed understanding and agreement. Discharge Plan Departure Patient Disposition: Home Clinical Impression: Back pain Instructions: DI for Low Back Pain Activity Restrictions/Additional Instructions: I do recommend that you continue all of your medications as directed. Keep your appointment that you have already scheduled with her primary doctor next week. Return to the emergency department for any new or worsening symptoms. Prescriptions: New hydrocodone-acetaminophen 5-325 mg tablet 1 tab PO Q6H PRN (Reason: pain) Qty: 20 0RF No Action jjqgvjwejvix-Rr-qmxo-minerals [Maximum Daily Multivitamin] 18-0.4 mg tablet PO 0RF cholecalciferol (vitamin D3) 2,000 unit capsule 2,000 unit PO DAILY 0RF glucosamine-chondroitin 900 mg tablet PO 0RF Label Comments: 1500mg Glucosamine/1200mg of Chondroitin. 2 tabs in AM, 1 tab in PM cyclobenzaprine 5 mg tablet 5 mg PO TID PRN (Reason: muscle spasm) Qty: 20 0RF omega 1-lim-elt-fish oil [Fish Oil] 1,000 mg (120 mg-180 mg) capsule See Rx Instructions PO DAILY Qty: 0 0RF Label Comments: 2 tabs in AM, 1 tab in PM PO DAILY; Rx Instructions: 2 tabs in AM, 1 tab in PM PO DAILY; fluticasone propionate 50 mcg/actuation spray,suspension See Rx Instructions .ROUTE .COMPLEX Qty: 16 5RF Dose Instruction: USE 2 SPRAYS IN EACH NOSTRIL AT BEDTIME Rx Instructions: USE 2 SPRAYS IN EACH NOSTRIL AT BEDTIME simvastatin 20 mg tablet 20 mg PO QPM Qty: 90 0RF Rx Instructions: PT OVERDUE FOR APPT W/PCP. PLEASE CALL TO SCHEDULE APPT. THANKS 10/04/20 lisinopril 20 mg tablet 20 mg PO DAILY Qty: 90 1RF Rx Instructions: KEEP 12/16/20 APPT W/SYLWIA. THANK YOU. 12/13/20 meloxicam 15 mg tablet 15 mg PO DAILY Qty: 90 2RF aspirin 81 mg tablet,delayed release (DR/EC) 81 mg PO DAILY 0RF acetaminophen [Tylenol Extra Strength] 500 mg tablet 500 mg PO QID PRN0RF hydrocodone-acetaminophen 5-325 mg tablet 1 tab PO Q4-6H PRN (Reason: pain) Qty: 10 0RF ketorolac 10 mg tablet 10 mg PO Q6H PRN (Reason: pain) Qty: 14 0RF gabapentin 300 mg capsule 300 mg PO BEDTIME Qty: 14 0RF prednisone 10 mg tablet See Rx Instructions .ROUTE .COMPLEX Qty: 30 0RF Rx Instructions: Day 1,2,3: 40mg PO Daily Day 4,5,6: 30mg PO Daily Day 7,8,9: 20mg PO Daily Day 10,11,12: 10mg PO Daily #30 Referrals: Trell Matos MD [Primary Care Provider] -
[2021-03-05 13:49] VITALS: BP 182/85; PULSE 78; RESP 18; TEMP 36.7; O2SAT 98
== END 2021-03-05 13:50 | disposition home or self-care (01) ==
PROVIDERS: Emergency Provider Emergency Medicine; PCP Internal Medicine
DX: M54.50 Low back pain, unspecified (principal); Z88.5 Allergy status to narcotic agent; Z87.891 Personal history of nicotine dependence
CPT/HCPCS: 99281

== ENCOUNTER 2021-03-12 09:50 | Emergency (ER) | payer MEDICARE, SELFPAY ==
[2021-03-12 10:08] VITALS: BP 161/81; PULSE 73; RESP 18; TEMP 36.6; O2SAT 99; BMI 27.6
--- NOTE | 2021-03-12 13:12 | ED.BACK ---
HPI - Back Pain/Injury General Chief Complaint: Back Pain/Injury Stated Complaint: severe back pain Time Seen by Provider: 03/12/21 13:12 Source: patient History of Present Illness HPI Narrative: 75-year-old gentleman with a history of hypertension, hyperlipidemia arthritis and chronic low back pain with spinal stenosis with acute exacerbation on February 26 after crawling under his house. Did not have any acute injury and woke up the next morning with severe pain. He was seen on the , , , and by his primary care provider on the . He has gone through a number of doses of hydrocodone has been started on a prednisone taper and prescribed gabapentin, he has chronic meloxicam 15 mg daily. Describes the pain as the lower left lumbar area radiating into his buttocks down the lateral aspect of the left leg and sometimes down into the knee. He is not reporting any weakness but has modified his gait somewhat to accommodate and complaining of some left knee pain as well. He describes no bowel or bladder changes and there is no skin involvement or changes. He has not been having any constipation, difficulty with urination, abdominal pain fevers, cough, chest pain or palpitations. Related Data Home Medications Medication Instructions Recorded Confirmed cholecalciferol (vitamin D3) 50 2,000 unit PO DAILY 10/11/17 03/08/21 mcg (2,000 unit) capsule mjdfsxtdqcko-Ox-rhkg-minerals 18 tab PO tab 10/11/17 03/08/21 mg-0.4 mg tablet (Maximum Daily Multivitamin) antiarthritic combination no.2 900 mg PO tab 05/30/18 03/08/21 mg tablet (glucosamine-chondroitin) aspirin 81 mg tablet,delayed 81 mg PO DAILY 05/30/18 03/08/21 release omega 4-dgx-qki-fish oil 1,000 mg See Rx Instructions PO DAILY #0 cap 05/30/18 03/08/21 (120 mg-180 mg) capsule (Fish Oil) acetaminophen 500 mg tablet 500 mg PO QID PRN 07/25/18 03/08/21 (Tylenol Extra Strength) Previous Rx's Medication Instructions Recorded fluticasone propionate 50 See Rx Instructions .ROUTE 08/05/19 mcg/actuation nasal .COMPLEX #16 gram spray,suspension simvastatin 20 mg tablet 20 mg PO QPM #90 tab 10/04/20 lisinopril 20 mg tablet 20 mg PO DAILY #90 tab 12/13/20 meloxicam 15 mg tablet 15 mg PO DAILY #90 tab 01/14/21 gabapentin 300 mg capsule 300 mg PO BEDTIME #14 cap 03/02/21 Allergies Allergy/AdvReac Type Severity Reaction Status Date / Time cedarwood [CEDARWOOD] Allergy Intermediate URI sx Verified 03/12/21 10:13 codeine [CODEINE] Allergy Mild PASSING OUT Verified 03/12/21 10:13 lidocaine [LIDOCAINE] Allergy Mild Verified 03/12/21 10:13 Review of Systems Review of Systems Narrative: Remainder of complete review of systems is otherwise unremarkable except for that included in the HPI. Patient History Medical History Abdominal cramps (~04/13/18) Benign essential hypertension Cardiac murmur Hearing loss Hyperlipidemia Hypertension Osteoarthritis of left knee Spinal stenosis (~2013) Vision disorder Surgical History Broken wrist (~1964) Family History Father Mental health problem Mother Stroke Sister Schizophrenia Grandfather Heart failure Grandmother Heart failure Grandfather Alcoholic Grandmother No problems noted. Social History Smoking Status: Former smoker alcohol intake: current Smoking Status: Former smoker alcohol intake frequency: 0-2 drinks per day Substance Use Type: does not use Exam Initial Vital Signs Initial Vital Signs: Vital Signs Temperature 97.8 F 03/12/21 10:08 Pulse Rate 73 03/12/21 10:08 Respiratory Rate 18 03/12/21 10:08 Blood Pressure 161/81 H 03/12/21 10:08 Pulse Oximetry 99 03/12/21 10:08 General: Alert appropriate in no acute distress Respiratory: Able to speak in full sentences, no obvious respiratory distress Skin: No obvious rashes, warm and dry Neurologic: Grossly intact no obvious asymmetries or abnormalities, intact patellar reflexes Psych: appropriate insight and affect, cooperative Spine: No skin changes. No significant muscle spasm is appreciated the area of concern. Course Orders Ordered: ED Orders 03/12/21 13:23 Urine Microscopic Stat Vital Signs Vital signs: Vital Signs - 8 hr 03/12/21 10:08 Temperature 97.8 F Pulse Rate 73 Respiratory Rate 18 Blood Pressure 161/81 H Pulse Oximetry 99 MDM - Back Pain/Injury Lab Data Labs: Urine Dip Bedside Urine Glucose Negative Bedside Urine Bilirubin - Negative Bedside Urine Ketone - Negative Urine Specific [place] 1.025 Bedside Urine Occult Blood - Negative Bedside Urine pH 6.0 Bedside Urine Protein + 30 Bedside Urine Urobilinogen - Negative Bedside Urine Nitrite - Negative Bedside Urine Leukocytes - Negative Esterase MDM Narrative Medical decision making narrative: 75-year-old gentleman with known low back issues including spinal stenosis and L3-4 areas of concern. Had a minor twisting turning type injury while crawling under house 2 weeks ago and has been having significant back pain since. There is no evidence of trauma, no fevers or risks for epidural abscess or diskitis. No suggestion of zoster, no acute weakness. He has had course of prednisone and a couple of courses of Vicodin and continues on 15 mg of meloxicam daily. He is concerned that he is not improving. We went over the anticipated course of recovery of such injuries. He had a similar episode in 2013 was eventually diagnosed with spinal stenosis with resolution of symptoms within approximately 6 weeks which completely fits into the anticipatory guidance discussed today. Given his chronic issues more than 2 weeks I do not think that additional narcotics are going to be appropriate. He will have him continue his meloxicam as well as the recently started gabapentin. We discussed the use of additional Tylenol through the day. He states he has an appointment with Dr Heredia on Sunday. At this point he can also can continue using heat and ice alternating. Encouraged him to follow-up with his primary care provider and consider physical therapy as well. He is safe for home discharge Discharge Plan Departure Patient Disposition: Home Clinical Impression: Acute exacerbation of chronic low back pain Instructions: DI for Back Pain With Sciatica Activity Restrictions/Additional Instructions: I am so sorry that your hurting as much as you are. You have had all appropriate treatments so far including steroids, muscle relaxers, narcotics. You currently are on the maximum dose of meloxicam as a anti inflammatory and gabapentin to help with the neuropathic pain. Two weeks into this episode means that it is no longer appropriate to use narcotics to help. You can continue to alternate ice and heat using whichever seems to make the most difference. Please continue with your meloxicam and to that you can add Tylenol. I encourage you to keep your appointment with the orthopedic surgeon and would suggest that you also consider physical therapy. I wish you the best Prescriptions: No Action gcavzveualxb-Aq-gort-minerals [Maximum Daily Multivitamin] 18-0.4 mg tablet PO 0RF cholecalciferol (vitamin D3) 2,000 unit capsule 2,000 unit PO DAILY 0RF glucosamine-chondroitin 900 mg tablet PO 0RF Label Comments: 1500mg Glucosamine/1200mg of Chondroitin. 2 tabs in AM, 1 tab in PM omega 2-ert-wvi-fish oil [Fish Oil] 1,000 mg (120 mg-180 mg) capsule See Rx Instructions PO DAILY Qty: 0 0RF Label Comments: 2 tabs in AM, 1 tab in PM PO DAILY; Rx Instructions: 2 tabs in AM, 1 tab in PM PO DAILY; fluticasone propionate 50 mcg/actuation spray,suspension See Rx Instructions .ROUTE .COMPLEX Qty: 16 5RF Dose Instruction: USE 2 SPRAYS IN EACH NOSTRIL AT BEDTIME Rx Instructions: USE 2 SPRAYS IN EACH NOSTRIL AT BEDTIME simvastatin 20 mg tablet 20 mg PO QPM Qty: 90 0RF Rx Instructions: PT OVERDUE FOR APPT W/PCP. PLEASE CALL TO SCHEDULE APPT. THANKS 10/04/20 lisinopril 20 mg tablet 20 mg PO DAILY Qty: 90 1RF Rx Instructions: KEEP 12/16/20 APPT W/SYLWIA. THANK YOU. 12/13/20 meloxicam 15 mg tablet 15 mg PO DAILY Qty: 90 2RF aspirin 81 mg tablet,delayed release (DR/EC) 81 mg PO DAILY 0RF acetaminophen [Tylenol Extra Strength] 500 mg tablet 500 mg PO QID PRN0RF gabapentin 300 mg capsule 300 mg PO BEDTIME Qty: 14 0RF Referrals: Trell Matos MD [Primary Care Provider] -
[2021-03-12 13:48] LABS: Bacteria Urine None Seen; Mucus Urine 1+ (Negative); RBC Urine 0-1/HPF (0-5/HPF); Squamous Epithelial Cell Urine 0-1 /HPF (0-5/HPF); WBC Urine 0-1/HPF (0-5/HPF)
[2021-03-12 13:49] LABS: Sperm Urine FEW
[2021-03-12 14:01] LABS: Culture Indicated Urine Cult Not Indicated
== END 2021-03-12 14:09 | disposition home or self-care (01) ==
PROVIDERS: Emergency Provider Emergency Medicine; PCP Internal Medicine
DX: G89.29 Other chronic pain (principal); M54.50 Low back pain, unspecified
CPT/HCPCS: 81003; 81015; 99281; 99282

== ENCOUNTER → 2021-03-23 09:36 | Outpatient (CLI) | payer MEDICARE, SELFPAY ==
--- NOTE | 2021-03-23 09:37 | DI.MRI.S_ITS ---
PROCEDURE: MR LUMBAR SPINE WO CON INDICATIONS: Low back pain, unspecified TECHNIQUE: Noncontrast sagittal T1 spin echo and T2 fast echo, sagittal STIR, axial T1 and T2 fast spin echo through the lumbar spine. In cases with scoliosis, additional coronal T2 fast spin echo may be performed. COMPARISON: [facility], MR, L-SPINE WITHOUT CONTRAST, 06/08/2014, 18:02. [facility], CR, L-SPINE MINIMUM 4 VIEWS, 06/01/2014, 15:50. [facility] [place], CR, XR LUMBAR SPINE WITH OBLIQUES PLUS FLEXION EXTENSION, 03/15/2021, 9:54. FINDINGS: Image quality: This examination is limited by involuntary motion artifact. Alignment and Curvature: There is minimal retrolisthesis at the L1-L2 level. Minimal anterolisthesis is seen at the L4-L5 level. Bone Marrow: Marrow is of normal overall signal. No acute vertebral body compression fractures. Spinal Cord: Conus medullaris terminates at the L1 level. Visualized cord demonstrates normal signal and size. Paraspinous Soft Tissues: No paravertebral masses. There is a 2.1 cm simple cyst along the posterior aspect the left kidney. T11-T12: Xfem-sz-izapejls loss of disc height is seen. The disc signal is relatively well preserved. Moderate bilateral neural foraminal narrowing is seen. Minimal central canal narrowing is seen. T12-L1: No significant abnormality is seen. L1-L2: Mild loss of disc height is seen. Loss of disc signal is seen. Mild to moderate disc bulge is seen, which is eccentric to the left. Mild to moderate facet hypertrophy is seen. Associated hypertrophy of the ligamentum flavum can be seen. There is moderate right-sided and at least moderate left-sided neural foraminal narrowing. Moderate central canal narrowing is seen. These imaging findings have progressed compared to the prior study. L2-L3: The disc height is well-preserved. Loss of disc signal is seen at this level. At least moderate disc bulge is seen, which is slightly eccentric to the right. There is a superimposed central disc protrusion. There is a focal annular fissure seen posteriorly. At least moderate facet hypertrophy is seen. Associated hypertrophy of the ligamentum flavum can be seen. There is moderate left-sided and moderate to severe right-sided neural foraminal narrowing. There is a degree of compression seen upon the exiting right L2 nerve root. Moderate to severe central canal narrowing is seen at this level. Compared to 2015, these degenerative changes are progressed. L3-L4: The disc height is well-preserved. Loss of disc signal is seen at this level. Moderate generalized disc bulge is seen. At least moderate facet hypertrophy is seen. Associated hypertrophy of the ligamentum flavum can be seen. Moderate bilateral neural foraminal narrowing is seen. Moderate central canal narrowing is seen. These imaging findings have progressed compared to the prior study. L4-L5: The disc height is well-preserved. Loss of disc signal is seen at this level. At least moderate disc bulge is seen, with a relatively prominent central disc protrusion, which is eccentric to the right. Moderate to prominent facet hypertrophy is seen. Associated hypertrophy of the ligamentum flavum can be seen. There is at least moderate bilateral neural foraminal narrowing seen, right worse than left. Severe central canal narrowing is seen at this level, as on series 6, image 5. These degenerative changes are mildly progressed compared to 2015. L5-S1: The disc height and disk signal are well-preserved. Mild generalized disc bulge is seen. Mild facet joint hypertrophy is seen. Minimal bilateral neural foraminal narrowing can be seen. No significant central canal narrowing is seen. When comparison is made with the prior images, these findings are similar. IMPRESSION: Multiple levels of lumbar spine degenerative change are seen, which are worst at the L4-L5 level. The degenerative changes have progressed compared to 2015. Dictated by: Roman Solorio M.D. on 03/23/2021 at 10:21 Approved by: Roman Solorio M.D. on 03/23/2021 at 10:28
== END ==
PROVIDERS: PCP Internal Medicine; Referring Provider Physical Medicine & Rehabilitation Pain Medicine; Visit Provider Physical Medicine & Rehabilitation Pain Medicine
DX: M47.816 Spondylosis without myelopathy or radiculopathy, lumbar region (principal); M54.50 Low back pain, unspecified
CPT/HCPCS: 72148

== ENCOUNTER 2022-08-31 15:23 | Emergency (ER) | payer OTHER, SELFPAY ==
[2022-08-31 15:30] VITALS: BP 143/73; PULSE 89; RESP 14; TEMP 36.4; O2SAT 97; BMI 27.5
--- NOTE | 2022-08-31 16:05 | DI.RAD.S_ITS ---
PROCEDURE: XR HAND LT MIN 3V INDICATIONS: saw Injury to left 2nd and 3rd digits TECHNIQUE: 3 views of the hand(s) acquired. COMPARISON: None. FINDINGS: Bones: No fractures or dislocations. Carpal bones are normally aligned. No suspicious bony lesions. Soft tissues: No suspicious soft tissue calcifications. No radiodense foreign body. IMPRESSION: No fracture. No osseous lesion. If symptoms and/or clinical suspicion for pathology persists, further assessment with repeat radiographs (7-10 days) or advanced imaging (e.g. CT, MRI or bone scan) should be considered. Dictated by: Sadia Orourke MD, PhD on 08/31/2022 at 16:22 Approved by: Sadia Orourke MD, PhD on 08/31/2022 at 16:22
--- NOTE | 2022-08-31 16:32 | ED.WOUNDLAC ---
HPI - Wound/Laceration <Dea Herzog, [facility] - Last Filed: 08/31/22 18:04> General Chief Complaint: Wound/Laceration Stated Complaint: Saw finger inj Time Seen by Provider: 08/31/22 16:03 Source: patient Mode of arrival: Ambulatory History of Present Illness HPI narrative: This is a 76-year-old gentleman who presents to the emergency department with a saw injury to his left 2nd and 3rd digits. He states he was using a table saw and on his last board, something caught and sucked his finger inside, he has a laceration to the finger pad of the left 3rd digit and a small laceration to the finger pad of the left 2nd digit. He does not remember when his tetanus was. States that the bleeding was controlled with a pressure dressing, he cleaned his wound with hydrogen peroxide afterwards. Denies any fingernail injury, complains of some pain. States he took 2 Tylenol to ibuprofen prior to coming in. He is right-hand dominant. Related Data Home Medications Medication Instructions Recorded Confirmed cholecalciferol (vitamin D3) 50 2,000 unit PO DAILY 10/11/17 03/08/21 mcg (2,000 unit) capsule vnqosytbbgjd-Py-rjhr-minerals 18 tab PO 10/11/17 03/08/21 mg-0.4 mg tablet (Maximum Daily Multivitamin) antiarthritic combination no.2 900 mg PO 05/30/18 03/08/21 mg tablet (glucosamine-chondroitin) aspirin 81 mg tablet,delayed 81 mg PO DAILY 05/30/18 03/08/21 release omega 4-gdn-xyw-fish oil 1,000 mg See Rx Instructions PO DAILY #0 05/30/18 03/08/21 (120 mg-180 mg) capsule (Fish Oil) caps acetaminophen 500 mg tablet 500 mg PO QID PRN 07/25/18 03/08/21 (Tylenol Extra Strength) Previous Rx's Medication Instructions Recorded fluticasone propionate 50 See Rx Instructions .Route 08/05/19 mcg/actuation nasal .COMPLEX #16 grams spray,suspension meloxicam 15 mg tablet 15 mg PO DAILY #90 tabs 10/20/21 gabapentin 300 mg capsule 300 mg PO BEDTIME #30 caps 11/28/21 lisinopril 20 mg tablet 20 mg PO DAILY #90 tabs 03/13/22 simvastatin 20 mg tablet 20 mg PO QPM #60 tabs 07/06/22 diazepam 10 mg tablet (Valium) 10 mg PO TID PRN muscle spasm 24 08/31/22 hours #14 tabs hydrocodone 5 mg-acetaminophen 325 1 tab PO Q6H PRN pain #10 tabs 08/31/22 mg tablet hydrocodone 5 mg-acetaminophen 325 1 tab PO Q6H PRN pain #14 tabs 08/31/22 mg tablet Allergies Allergy/AdvReac Type Severity Reaction Status Date / Time cedarwood [CEDARWOOD] Allergy Intermediate URI sx Verified 08/31/22 15:38 codeine [CODEINE] Allergy Mild PASSING OUT Verified 08/31/22 15:38 lidocaine [LIDOCAINE] Allergy Mild Verified 08/31/22 15:38 Review of Systems <DEB Carpio - Last Filed: 08/31/22 18:04> Review of Systems ROS Unobtainable: All systems reviewed & are unremarkable except as noted in HPI and below Patient History <DEB Carpio - Last Filed: 08/31/22 18:04> Medical History Abdominal cramps (~04/13/18) Benign essential hypertension Cardiac murmur Hearing loss Hyperlipidemia Hypertension Osteoarthritis of left knee Spinal stenosis (~2013) Vision disorder Surgical History Broken wrist (~1964) Family History Father Mental health problem Mother Stroke Sister Schizophrenia Grandfather Heart failure Grandmother Heart failure Grandfather Alcoholic Grandmother No problems noted. Social History Smoking Status: Former smoker alcohol intake: current Smoking Status: Former smoker alcohol intake frequency: 0-2 drinks per day Substance Use Type: does not use Exam <DEB Carpio - Last Filed: 08/31/22 18:04> Narrative Exam Narrative: Reviewed vitals signs and nursing notes. General: Pleasant, sitting upright, in no acute distress, well groomed, afebrile HEENT: symmetrical facial expressions, moist mucous membranes, neck is supple MSK: moves all extremities, no weakness, normal tone, ambulatory without deficit Skin: brisk capillary refill, without rash or wound Neuro: clear speech and normal cognition, A&O x3, GCS 15, no focal motor or sensation deficits Initial Vital Signs Initial Vital Signs: Vital Signs Temperature 97.6 F 08/31/22 15:30 Pulse Rate 89 08/31/22 15:30 Respiratory Rate 14 08/31/22 15:30 Blood Pressure 143/73 H 08/31/22 15:30 Pulse Oximetry 97 08/31/22 15:30 Oxygen Delivery Method Room Air 08/31/22 15:30 <Noemy Mackenzie MD - Last Filed: 08/31/22 19:43> Initial Vital Signs Initial Vital Signs: Vital Signs Temperature 97.6 F 08/31/22 15:30 Pulse Rate 89 08/31/22 15:30 Respiratory Rate 14 08/31/22 15:30 Blood Pressure 143/73 H 08/31/22 15:30 Pulse Oximetry 97 08/31/22 15:30 Oxygen Delivery Method Room Air 08/31/22 15:30 Procedures <DEB Carpio - Last Filed: 08/31/22 18:04> Laceration Repair Laceration 1: Site: hand Side (If applicable): left Description: linear and stellate Depth: simple, single layer Local Anesthetic: lidocaine 2% and bupivacaine 0.25% Amount of anesthesia used (mL): 5 Pre-repair: wound explored, irrigated extensively and deep structures intact Skin layer closed with: nylon Skin layer suture size: 5-0 Number of sutures: 9 Technique: simple, interrupted Course <DEB Carpio - Last Filed: 08/31/22 18:04> Orders Ordered: ED Orders 08/31/22 16:05 XR hand LT min 3V Stat Discontinued Medications Hydrocodone Bitart/Acetaminophen (Hydrocodone/Acet 5/325 Tablet) 1 tab PO NOW ONE Stop: 08/31/22 16:40 Last Admin: 08/31/22 16:52 Dose: 1 tab Documented By: NR Bupivacaine HCl (Bupivacaine 0.25% (Pf) Vial) 1 ml INJ INTRA-OP ONE Stop: 08/31/22 16:07 Diphtheria/Tetanus/Acell Pertussis (Tet,Diph,Pertuss(Acell),Vac/Pf 0.5 Ml Syringe) 0.5 ml IM .ONCE ONE Stop: 08/31/22 16:07 Last Admin: 08/31/22 16:51 Dose: 0.5 ml Documented By: NR Lidocaine HCl (Lidocaine 2% Inj Sdv 5ml) 5 ml INJ INTRA-OP ONE Stop: 08/31/22 16:40 Last Admin: 08/31/22 16:55 Dose: 5 ml Documented By: NR Vital Signs Vital signs: Vital Signs - 8 hr 08/31/22 15:30 08/31/22 17:38 Temperature 97.6 F Pulse Rate 89 64 Respiratory Rate 14 Blood Pressure 143/73 H 136/79 Pulse Oximetry 97 99 Oxygen Delivery Method Room Air Room Air <Noemy Mackenzie MD - Last Filed: 08/31/22 19:43> Orders Ordered: ED Orders 08/31/22 16:05 XR hand LT min 3V Stat Discontinued Medications Hydrocodone Bitart/Acetaminophen (Hydrocodone/Acet 5/325 Tablet) 1 tab PO NOW ONE Stop: 08/31/22 16:40 Last Admin: 08/31/22 16:52 Dose: 1 tab Documented By: NR Bupivacaine HCl (Bupivacaine 0.25% (Pf) Vial) 1 ml INJ INTRA-OP ONE Stop: 08/31/22 16:07 Diphtheria/Tetanus/Acell Pertussis (Tet,Diph,Pertuss(Acell),Vac/Pf 0.5 Ml Syringe) 0.5 ml IM .ONCE ONE Stop: 08/31/22 16:07 Last Admin: 08/31/22 16:51 Dose: 0.5 ml Documented By: NR Lidocaine HCl (Lidocaine 2% Inj Sdv 5ml) 5 ml INJ INTRA-OP ONE Stop: 08/31/22 16:40 Last Admin: 08/31/22 16:55 Dose: 5 ml Documented By: NR Vital Signs Vital signs: Vital Signs - 8 hr 08/31/22 15:30 08/31/22 17:38 Temperature 97.6 F Pulse Rate 89 64 Respiratory Rate 14 Blood Pressure 143/73 H 136/79 Pulse Oximetry 97 99 Oxygen Delivery Method Room Air Room Air MDM - Wound/Laceration <DEB Carpio - Last Filed: 08/31/22 18:04> Imaging Data Extremity x-ray #1: Radiologist's Impression: PROCEDURE:? XR HAND LT MIN 3V ? INDICATIONS:? saw Injury to left 2nd and 3rd digits ? TECHNIQUE:? 3 views of the hand(s) acquired.? ? COMPARISON:? None. ? FINDINGS:? ? Bones:? No fractures or dislocations.? Carpal bones are normally aligned.? No suspicious bony lesions.? ? Soft tissues:? No suspicious soft tissue calcifications.? No radiodense foreign body. ? ? IMPRESSION:? No fracture. No osseous lesion. If symptoms and/or clinical suspicion for pathology persists, further assessment with repeat radiographs (7-10 days) or advanced imaging (e.g. CT, MRI or bone scan) should be considered. ? ? Dictated by: Sadia Orourke MD, PhD on 08/31/2022 at 16:22 ? ? Approved by: Sadia Orourke MD, PhD on 08/31/2022 at 16:22 ? MDM Narrative Medical decision making narrative: Chief Complaint: Laceration to left hand digits 2 and 3 Multiple etiologies for patient's complaint considered including, but not limited to: Laceration, tendon, ligament injury, vascular injury allergic reaction to lidocaine I have independently reviewed the patient's vital signs and nursing notes as well as prior records if available. Plan: Discussed patient's lidocaine allergy he does not recall having 1. States that he has had anesthesia of his teeth in the past without complication. He does not remember when his last tetanus was, tetanus given today. He is not anticoagulated, x-rays negative for acute fracture. Patient received 9 sutures in total, his 3rd finger has a stellate laceration requiring 5 sutures, good wound edge approximation, 4th digit has a linear laceration across the finger pad approximately 1.5 cm which received for sutures. Patient's tetanus was updated, finger was irrigated with normal saline prior to suture repair. He tolerated this well, full mobility intact including flexion-extension isolated each joint. I do not suspect a tendon injury. Social considerations that may affect disposition: none Questions are addressed and there is agreement with the plan and for follow-up. I consulted with the ED attending physician Dr. Mackenzie as needed for higher level of care considerations and they were available for discussion and recommendations regarding plan of care and diagnostic testing. Patient is appropriate for outpatient management. Discharge Plan Departure Patient Disposition: Home Clinical Impression: Contact with powered saw as cause of accidental injury Laceration of finger Qualifiers: Encounter type: initial encounter Finger: index finger Damage to nail status: without damage Foreign body presence: without foreign body Laterality: left Qualified Code(s): S61.211A - Laceration without foreign body of left index finger without damage to nail, initial encounter Instructions: How to Care for a Laceration After Repair, DI for Laceration Repair Activity Restrictions/Additional Instructions: *You have been diagnosed with lacerations to your 3rd and 4th digit on your left hand. Your tetanus was updated today, the x-ray does not show any fracture. Please keep your sutures in for 10 days and you can remove them at that point. Please use topical antibiotic ointment to prevent this getting infected, if you notice redness or streaking up your fingers, into her hand, pain out of proportion, increased bleeding or other signs of infection please come back to the emergency department for antibiotics. I hope you stay out of trouble, it was nice to meet you, thank you for not cutting your fingers off. You have [address] *What to do: *Please continue to take your regular medications as directed. [ x] New medication prescriptions sent to your pharmacy: [ [facility]] [ ] New medication written as a paper prescription [ ] No new medications given *Please call and schedule follow up with your primary care provider in 2-3 days, at least for an update. Let them know you were seen in the Emergency Department for the above problem. We will electronically transmit a record of today's note if your PCP or specialist is in our system. *If you do not have a primary care provider please contact [phone] to establish care with one of the [facility] primary care providers. *Return to the Emergency Department for worsening symptoms, inability to keep liquids down, fever greater than 101F, chills, or other concerning symptom. Prescriptions: New hydrocodone-acetaminophen 5-325 mg tablet 1 tab PO Q6H PRN (Reason: pain) Qty: 10 0RF hydrocodone-acetaminophen 5-325 mg tablet 1 tab PO Q6H PRN (Reason: pain) Qty: 14 0RF diazepam [Valium] 10 mg tablet 10 mg PO TID PRN (Reason: muscle spasm) 1 Days Qty: 14 0RF No Action faeyjximjqod-Un-fmfk-minerals [Maximum Daily Multivitamin] 18-0.4 mg tablet PO cholecalciferol (vitamin D3) 2,000 unit capsule 2,000 unit PO DAILY glucosamine-chondroitin 900 mg tablet PO Patient Comments: 1500mg Glucosamine/1200mg of Chondroitin. 2 tabs in AM, 1 tab in PM omega 2-heo-roe-fish oil [Fish Oil] 1,000 mg (120 mg-180 mg) capsule See Rx Instructions PO DAILY Qty: 0 Patient Comments: 2 tabs in AM, 1 tab in PM PO DAILY; Rx Instructions: 2 tabs in AM, 1 tab in PM PO DAILY; fluticasone propionate 50 mcg/actuation spray,suspension See Rx Instructions .ROUTE .COMPLEX Qty: 16 5RF Dose Instruction: USE 2 SPRAYS IN EACH NOSTRIL AT BEDTIME Rx Instructions: USE 2 SPRAYS IN EACH NOSTRIL AT BEDTIME meloxicam 15 mg tablet 15 mg PO DAILY Qty: 90 2RF gabapentin 300 mg capsule 300 mg PO BEDTIME Qty: 30 2RF lisinopril 20 mg tablet 20 mg PO DAILY Qty: 90 3RF simvastatin 20 mg tablet 20 mg PO QPM Qty: 60 0RF Rx Instructions: PATIENT OVERDUE FOR APPT. PLEASE CALL TO SCHEDULE. THANKS 07/06/22. aspirin 81 mg tablet,delayed release (DR/EC) 81 mg PO DAILY acetaminophen [Tylenol Extra Strength] 500 mg tablet 500 mg PO QID PRN Referrals: Trell Matos MD [Primary Care Provider] - Stand Alone Forms: Patient Portal/API <Noemy Mackenzie MD - Last Filed: 08/31/22 19:43> Cosign ED Attending Cosignature Attestation: I was immediately available in the department for consultation throughout this patient's visit. Noemy Mackenzie MD
[2022-08-31] MEDS: TET,DIPH,PERTUSS(ACELL),VAC/PF 0.5 ML SYRINGE IM (16:51)
[2022-08-31] MEDS: HYDROCODONE/ACET 5/325 TABLET 1 TAB PO (16:52)
[2022-08-31] MEDS: LIDOCAINE 2% INJ SDV 5ML 5 ML INJ (16:55)
[2022-08-31 17:38] VITALS: BP 136/79; PULSE 64; O2SAT 99
== END 2022-08-31 17:39 | disposition home or self-care (01) ==
PROVIDERS: Emergency Provider Nurse Practitioner Critical Care Medicine; PCP Internal Medicine
DX: S61.211A Laceration without foreign body of left index finger without damage to nail, initial encounter (principal); W27.0XXA Contact with workbench tool, initial encounter; Z23 Encounter for immunization
CPT/HCPCS: 12001; 73130; 90471; 99283; 90715

== ENCOUNTER → 2022-12-08 16:09 | Outpatient (CLI) | payer OTHER, SELFPAY ==
[2022-12-08 16:38] LABS: Alanine Aminotransferase 21 IU/L (<50); Albumin 4.4 g/dL (3.5-5.0); Albumin Globulin Ratio 1.3 (1.0-2.8); Alkaline Phosphatase 46 U/L (38-126); Aspartate Aminotransferase 25 IU/L (17-59); BUN Creatinine Ratio 24.1 (6-22); Bilirubin Total 0.6 mg/dL (0.2-1.3); Blood Urea Nitrogen 19 mg/dL (9-20); Calcium 9.9 mg/dL (8.4-10.2); Carbon Dioxide 26 mmol/L (22-32); Chloride 102 mmol/L (98-107); Cholesterol 149 mg/dL (140-199); Estimated Glomerular Filt Rate > 60 mL/min (>60); Globulin 3.4 g/dL (1.7-4.1); Glucose 90 mg/dL (80-110); HDL Cholesterol 42 mg/dL (40-60); HEMOLYSIS < 15 (0-50); LDL Cholesterol Calculated 91 mg/dL (<100); Potassium 4.3 mmol/L (3.4-5.1); Sodium 137 mmol/L (137-145); Total Protein 7.8 g/dL (6.3-8.2); Triglycerides 82 mg/dL (35-150)
== END ==
PROVIDERS: PCP Internal Medicine; Referring Provider Internal Medicine; Visit Provider Internal Medicine
DX: I10 Essential (primary) hypertension (principal); E78.5 Hyperlipidemia, unspecified
CPT/HCPCS: 36415; 80053; 80061

== ENCOUNTER → 2024-02-11 16:33 | Outpatient (CLI) | payer OTHER, SELFPAY ==
[2024-02-11 17:44] LABS: Influenza A - CEPHEID Flu A NEGATIVE (NEGATIVE); Influenza B - CEPHEID Flu B NEGATIVE (NEGATIVE); Respiratory Syncytial Virus Negative (Negative)
[2024-02-11 18:00] LABS: COVID-19 CEPHEID 4-PLEX PCR Negative (Negative)
== END ==
PROVIDERS: PCP Internal Medicine; Visit Provider Physician Assistant
DX: R05.1 Acute cough (principal)
CPT/HCPCS: 0241U

== ENCOUNTER → 2024-02-12 13:52 | Outpatient (CLI) | payer OTHER, SELFPAY ==
--- NOTE | 2024-02-12 13:53 | DI.RAD.S_ITS ---
PROCEDURE: XR CHEST 2V INDICATIONS: cough, increasing shortness of breath TECHNIQUE: 2 views of the chest were acquired. COMPARISON: [facility], , CHEST 2 VIEW, 01/02/2017, 14:20. FINDINGS: Surgical changes and devices: None. Lungs and pleura: Hazy left basilar opacity. Mediastinum: Mediastinal contours are normal. Heart size is normal. Bones and chest wall: No suspicious bony abnormalities. Soft tissues appear unremarkable. IMPRESSION: Hazy left basilar opacity, could represent atelectasis or developing infection. Dictated by: Harish Saha M.D. on 02/14/2024 at 9:12 Approved by: Harish Saha M.D. on 02/14/2024 at 9:13
== END ==
PROVIDERS: PCP Internal Medicine; Referring Provider Physician Assistant; Visit Provider Physician Assistant
DX: R05.1 Acute cough (principal)
CPT/HCPCS: 71046